=== PATIENT | male | born 1960 | race Caucasian/White ===

== ENCOUNTER 2020-11-04 15:33 | Emergency (ER) | payer OTHER ==
[~2020-11-04] VITALS: Ht 165.1 cm; Wt 79.4 kg
[2020-11-04] MEDS ORDERED: KETOROLAC TROMETHAMINE 60 MG/2 ML VIAL IM ONE (16:45)
[2020-11-04] MEDS ORDERED: HYDROCODONE/APAP 5MG-325MG TAB PO NR (16:45)
[2020-11-04] MEDS ORDERED: DIAZEPAM 5 MG TAB PO NR (16:45)
[2020-11-04] MEDS ORDERED: FENTANYL CITRATE/PF 100MCG/2 ML INJ IV ONE (18:45)
[2020-11-04 21:16] VITALS: BP 147/84
== END 2020-11-04 21:00 | disposition home or self-care (01) ==
LOC: ER 15:51
DX: S43.014A Anterior dislocation of right humerus, initial encounter (principal); M25.531 Pain in right wrist; W01.0XXA Fall on same level from slipping, tripping and stumbling without subsequent striking against object, initial encounter; Y92.008 Other place in unspecified non-institutional (private) residence as the place of occurrence of the external cause; I10 Essential (primary) hypertension; E78.5 Hyperlipidemia, unspecified
CPT/HCPCS: 23650; 73020; 73030; 73060; 73110; 99284; J1885; J3010